=== PATIENT | male | born 2000 | race Caucasian/White ===

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

== ENCOUNTER → 2021-09-25 11:32 | Outpatient (CLI) | payer OTHER, SELFPAY | PROVIDERS: Family Provider Pediatrics; PCP Pediatrics; Visit Provider Nurse Practitioner Family | DX: J02.9 Acute pharyngitis, unspecified (principal) | CPT/HCPCS: 87070; 87077; 87147; 87186 ==